=== PATIENT | female | born 1995 | race African-American/Black ===

== ENCOUNTER 2017-01-20 13:59 | Inpatient (IN) ==
--- NOTE | 2017-01-20 14:51 | Ultrasound Report ---
Exam: US OB biophysical profile Date: 01/20/2017 2:13 PM Comparison: None Indication: Hypertension Findings: Fetus in the vertex presentation with anterior placenta present. heart rate 141 bpm Amniotic fluid index 12.6 cm. Grade 3 placenta present. breathin movement:2 tone:2 Qualitative amniotic fluid volume:2 Impression: 1. Normal biophysical profile score 8 of 8. Ultrasound images were stored and captured PROCEDURE INTERPRETED AT [facility] DEPARTMENT OF RADIOLOGY Final Report Signed by: Dr. Juanito Nath
[2017-01-20] MEDS ORDERED: DINOPROSTONE VAG GEL 10 MG SYRINGE VAG ONE (16:08)
[2017-01-20] MEDS: LACTATED RINGERS 1,000 ML IV SCH ×2 (16:15→20:37)
[2017-01-20 16:39] LABS: Basophils % 0.1 % (0.0-0.8); Eosinophils # 0.1 10*3/uL (0.0-0.87); Eosinophils % 0.8 % (0.00-10.9); Hematocrit 36.8 VOL% (35.7-47.0); Hemoglobin 11.9 GM/DL (12.0-16.0); Immature Granulocytes % 0.8 %; Immature Granulocytes Absolute 0.07 #; Lymphocytes # 1.9 10*3/uL (1.4-4.0); Lymphocytes % 21.3 % (21.3-54.2); Mean Corpuscular HGB Conc 32.3 GM/DL (32-36); Mean Corpuscular Hemoglobin 30 PG (27-34); Mean Corpuscular Volume 93.6 FL (87-102); Mean Platelet Volume 12.3 FL (9.6-12.0); Monocytes # 0.7 10*3/uL (0.11-0.8); Monocytes % 7.6 % (1.7-12.7); Neutrophils # 6.3 10*3/uL (1.4-7.4); Neutrophils % 69.4 % (38.7-73.9); Platelet Count 167 T/CUMM (130-400); Red Blood Count 3.93 MC/CUMM (3.8-5.5); Red Cell Distribution Width 12.8 % (9.3-17.3); White Blood Count 9.1 T/CUMM (4-12)
[2017-01-20 16:45] LABS: INR 0.9; PT Patient Result 9.5 SECS; Partial Thromboplastin Time 24.7 SECS (0-40)
--- NOTE | 2017-01-20 17:42 | OB/GYN History & Physical ---
History of Present Illness Chief complaint: Induction due to PIH. History of present illness: Ms. Vivas is a 21 year old female who is a primigravida and grossly obese. Her HERNANDEZ is 01/29/2017 for an estimated gestational age of 38 weeks and 4 days. The patient presented to the labor department for evaluation of status due to hypertension and superimposed preeclampsia. In light of these findings the patient will be admitted for elective induction of labor due to the above. The risk and benefits have been thoroughly discussed with this patient and all parties are in agreement with plan of care. She received her care my office. And she received routine care. Her course was complicated by the fact that she had hypertension. She was treated with labetalol but could not tolerate it and was then started on Aldomet. 24-hour urine was also performed during this . labs: She is B+, her RPR was reactive at 1:8, hepatitis B negative, HIV negative, rubella immune, GBS culture positive. Home Medications Medication Instructions Recorded Confirmed Type Methyldopa 1 tablet PO BID 12/21/16 01/20/17 History No122/Iron/Folic Acid 1 tablet PO DAILY 12/21/16 01/20/17 History [ Multi Tablet] Allergies Allergy/AdvReac Type Severity Reaction Status Date / Time No Known Allergies Allergy Verified 01/14/17 08:38 12 point system: reviewed and no additional remarkable complaints except as stated Medical,Surgical,& Family Hx - Medical History Cardio: History of: Hypertension (gestational htn) Reproductive: History of: Sexually Transmitted Disorders (Chlamydia and syphilis in 2016) - Surgical History Cardiac Surgeries: Patient Denies: Cardiac Catheterization HEENT Surgeries: Surgical HX of: Tonsilectomy & Adenoidectomy Abdominal Surgeries: Patient denies: Abdominal Surgery Reproductive Surgeries: Patient denies;: Gynecologic Surgery - Family History Family History: Reports;: Family Hypertension (mom dad) Denies;: Family Anesthesia Reaction, Family Cancer, Family Diabetes, Family Heart Disease, Family Hematology, Family Psychiatric Problems, Family Stroke, Additional Family History - Social History Smoking Status: Never smoker Frequency of Alcohol Use: None Type of Drug Use: Marijuana Marital Status: Single Lives With:: Parent Functional 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 General appearance: no acute distress - Antepartum / Post Antepartum Exam Cervix - Dilatation: 1 cm Effacement: 50% Station: -2 Rupture: intact Presentation: vtx Heart Rate: 150s Breast: bilateral: normal Abdomen obstetrics: Present: bowel sounds normal Vagina: Present: normal moisture, discharge Uterus exam: Present: enlarged Anus/Rectum: Present: normal perianal skin - ENT ENT exam: Present: normal exam - Respiratory Respiratory exam: Present: clear to auscultation bilaterally - Cardiovascular Cardiovascular exam: Present: regular rate and rhythm - GI/Abdominal GI/Abdominal exam: Present: normal bowel sounds, soft - Extremities Exam Extremities exam: Present: normal inspection - Back Exam Back exam: Present: normal inspection - Neurological Exam Neurological exam: Present: alert, oriented X3 - Psychiatric Psychiatric exam: Present: normal affect, normal mood - Skin Skin exam: Present: normal color, warm Assessment and Plan (1) Hypertension affecting in third trimester Status: Acute Assessment and plan: Admit IV fluids Prostin per protocol IV Pitocin per protocol Artificial rupture membranes when appropriate Internal medicine is indicated Epidural anesthesia if desired IV antibiotics prophylactically for positive GBS culture Anticipate Current Visit: Yes Results - Labs CBC & BMP: 01/20/17 16:18
[2017-01-20] MEDS: METHYLDOPA 250 MG TABLET PO SCH (20:35)
[2017-01-20] MEDS: ONDANSETRON 4 MG/2 ML VIAL IV PRN (20:36)
[2017-01-20] MEDS: MEPERIDINE 50 MG/1 ML VIAL IV PRN (20:38)
[2017-01-21] MEDS ORDERED: AMPICILLIN INJ 2,000 MG in SODIUM CHLORIDE 0.9% 100 ML IV ONE (01:00)
[2017-01-21] MEDS: OXYTOCIN/LR 20 UNIT/1,000 ML BAG IV SCH ×2 (03:19→08:00)
[2017-01-21] MEDS: LACTATED RINGERS 1,000 ML IV SCH (03:21)
[2017-01-21 04:52] LABS: Rapid Plasma Reagin Confirm REACTIVE (Nonreactive)
[2017-01-21] MEDS: AMPICILLIN INJ 1,000 MG in SODIUM CHLORIDE 0.9% 100 ML IV SCH ×3 (08:00→15:50)
[2017-01-21] MEDS: METHYLDOPA 250 MG TABLET PO SCH (08:40)
[2017-01-21] MEDS: ONDANSETRON 4 MG/2 ML VIAL IV PRN (09:45)
[2017-01-21] MEDS: MEPERIDINE 50 MG/1 ML VIAL IV PRN (09:45)
[2017-01-21] MEDS ORDERED: BUTORPHANOL 2 MG/ML VIAL IV PRN (12:51)
[2017-01-21] MEDS ORDERED: LIDOCAINE 100 MG/5 ML SYRINGE ONE (15:19)
[2017-01-21] MEDS ORDERED: SUCCINYLCHOLINE 200 MG/10 ML VIAL ONE (15:19)
[2017-01-21] MEDS ORDERED: PROPOFOL 200 MG/20 ML VIAL IV ONE (15:19)
[2017-01-21] MEDS ORDERED: GLYCOPYRROLATE 0.4 MG/2 ML VIAL ONE (15:19)
[2017-01-21] MEDS ORDERED: ROCURONIUM 100 MG/10 ML VIAL IV ONE (15:19)
[2017-01-21] MEDS ORDERED: OXYTOCIN 10 UNIT/ML VIAL ONE (16:26)
[2017-01-21] MEDS ORDERED: CITRIC ACID/SODIUM CITRATE 30 ML UDCUP PO ONE (16:30)
[2017-01-21] MEDS ORDERED: FAMOTIDINE 20 MG/2 ML VIAL IV ONE (16:30)
[2017-01-21] MEDS ORDERED: OXYTOCIN 10 UNIT/ML VIAL IM ONE (16:30)
[2017-01-21] MEDS ORDERED: OXYTOCIN/LR 30 UNIT/1,000 ML BAG IV ONE (16:30)
[2017-01-21 18:03] LABS: Apearance,Urine CLEAR (Clear); Bacteria,Urine Occasional /HPF (Few); Bilirubin,Urine Negative (Negative); Blood, Urine Small mg/dL (Negative); Glucose,Urine (UA) Negative (Negative); Ketones,Urine 20 mg/dL (Negative); Mucus,Urine Occasional /LPF (Occasional); Nitrite,Urine Negative (Negative); Protein,Urine Negative; RBC,Urine 2 /HPF (0-4); Urine Color Yellow (Yellow); Urine Specific Gravity 1.006 (1.001-1.035); Urine Urobilinogen < 2.0 EU/DL (0.2-1.0); WBC,Urine 1 /HPF (0-6)
[2017-01-21] MEDS ORDERED: HYDROmorphone 2 MG/1 ML VIAL ONE (18:31)
--- NOTE | 2017-01-21 18:35 | Operative Note ---
Date of procedure: 01/21/17 Procedure: Preoperative diagnosis: Morbid obesity, grade 2 placenta, and gestational hypertension, poorly controlled gestational diabetes mellitus. Failure to progress Postoperative diagnosis: Same Anesthesia:[] General anesthesia, fails a spinal anesthetic Estimated blood loss: [] 400 cc Surgeon: Dr. Harding Findings: [] 7 lbs. 9 oz. infant, Apgars were 8 at 1 minute 9 at 5 minutes, male infant, cord blood and cord gas obtained,, delivery time was 1729 Complications: None Procedure: Low transverse section The patient was taken to the operating suite heart tones were obtained prior to and after regional anesthesia was obtained. She was placed in supine position her abdomen was prepped and draped in usual manner for major abdominal surgery. Through an abdominal incision the skin, subcutaneous, fascial layer and peritoneal the abdomen was entered. The bladder flap was created and a low transverse incision was made.. Fluid was clear and normal amount X, Apgars, the placenta was delivered and sent to lab for further evaluation, placenta approximately 70% calcified.. Injected with intrauterine Pitocin. The first layer of the uterus was closed with #1 Vicryl in a continuous locking manner. Close to imbricate the first layer with #1 Vicryl. The peritoneum was approximated with #2-0 Vicryl.[] All the last sponges and instruments were accounted for -2.) #2-0 Vicryl. Fascia was approximated with #0-0 Maxon.. The skin was approximated with reed. She tolerated procedure well and was taken to recovery room in stable condition. Surgeon / Physician: Cherie Harding Results - Labs CBC & BMP: 01/20/17 16:18 Discharge Plan - Discharge Medications No Action Methyldopa 1 tablet PO BID No122/Iron/Folic Acid [ Multi Tablet] 1 tablet PO DAILY - Follow Up or Referral - Forms/Instructions
[2017-01-21] MEDS ORDERED: ACETAMINOPHEN 325 MG TABLET PO PRN (18:36)
[2017-01-21] MEDS ORDERED: RHO(D) IMMUNE GLOBULIN 300 MCG SYRINGE IM ONE (18:36)
[2017-01-21] MEDS ORDERED: OXYTOCIN/LR 20 UNIT/1,000 ML BAG IV ONE ×2 (18:36→19:36)
[2017-01-21] MEDS ORDERED: ONDANSETRON 4 MG/2 ML VIAL IV PRN (18:36)
[2017-01-21] MEDS ORDERED: MAGNESIUM HYDROXIDE SUSP 30 ML UDCUP PO PRN (18:36)
[2017-01-21] MEDS ORDERED: LACTATED RINGERS 1,000 ML IV SCH (19:00)
[2017-01-21] MEDS ORDERED: fentaNYL 100 MCG/2 ML VIAL ONE (19:02)
[2017-01-21] MEDS ORDERED: MIDAZOLAM 2 MG/2 ML VIAL ONE (19:02)
[2017-01-21] MEDS ORDERED: MORPHINE 10 MG/10 ML VIAL ONE (19:03)
--- NOTE | 2017-01-21 19:15 | Anesthesia Post-Op ---
Anesthesia Post OP - Post Ansesthetic Evaluation Patient seen in post op: Yes Resp: within normal limits (pt on 100% FM, nurse remains in room at pt beside) CV: within normal limits Mental: within normal limits (pt sedate, resp even , nurse present in room) Temp: within normal limits [id number]: within normal limits Nausea and Vomiting: within normal limits Pain: within normal limits
[2017-01-21] MEDS ORDERED: CARBOPROST TROMETHAMINE 250 MCG/ML AMP IM ONE (19:16)
[2017-01-21] MEDS ORDERED: NALOXONE 0.4 MG/ML VIAL IV PRN (19:36)
[2017-01-21] MEDS ORDERED: HYDROmorphone PCA 30 MG/30 ML SYRINGE IV ONE (19:41)
[2017-01-21] MEDS ORDERED: HYDROmorphone PCA 30 MG/30 ML SYRINGE IV SCH (20:00)
[2017-01-21 21:25] LABS: Basophils % 0.1 % (0.0-0.8); Eosinophils % 0.1 % (0.00-10.9); Hematocrit 28.9 VOL% (35.7-47.0); Hemoglobin 9.7 GM/DL (12.0-16.0); Immature Granulocytes % 0.7 %; Immature Granulocytes Absolute 0.09 #; Lymphocytes # 1.1 10*3/uL (1.4-4.0); Lymphocytes % 9.2 % (21.3-54.2); Mean Corpuscular HGB Conc 33.6 GM/DL (32-36); Mean Corpuscular Hemoglobin 31 PG (27-34); Mean Platelet Volume 11.9 FL (9.6-12.0); Monocytes # 0.5 10*3/uL (0.11-0.8); Monocytes % 4.2 % (1.7-12.7); Neutrophils # 10.4 10*3/uL (1.4-7.4); Neutrophils % 85.7 % (38.7-73.9); Platelet Count 146 T/CUMM (130-400); Red Blood Count 3.14 MC/CUMM (3.8-5.5); White Blood Count 12.2 T/CUMM (4-12)
[2017-01-21] MEDS: DOCUSATE SODIUM 100 MG CAPSULE PO SCH (22:26)
[2017-01-21] MEDS ORDERED: SODIUM CHLORIDE 0.9% 250 ML IV PRN (23:28)
[2017-01-22 06:26] LABS: Basophils % 0.1 % (0.0-0.8); Eosinophils # 0.1 10*3/uL (0.0-0.87); Eosinophils % 0.6 % (0.00-10.9); Hematocrit 27.2 VOL% (35.7-47.0); Hemoglobin 8.9 GM/DL (12.0-16.0); Immature Granulocytes % 0.8 %; Immature Granulocytes Absolute 0.08 #; Lymphocytes # 1.5 10*3/uL (1.4-4.0); Lymphocytes % 15.8 % (21.3-54.2); Mean Corpuscular HGB Conc 32.7 GM/DL (32-36); Mean Corpuscular Hemoglobin 31 PG (27-34); Mean Corpuscular Volume 93.2 FL (87-102); Mean Platelet Volume 11.7 FL (9.6-12.0); Monocytes # 0.5 10*3/uL (0.11-0.8); Monocytes % 5.4 % (1.7-12.7); Neutrophils # 7.3 10*3/uL (1.4-7.4); Neutrophils % 77.3 % (38.7-73.9); Platelet Count 121 T/CUMM (130-400); Red Blood Count 2.92 MC/CUMM (3.8-5.5); Red Cell Distribution Width 12.8 % (9.3-17.3); White Blood Count 9.4 T/CUMM (4-12)
[2017-01-22] MEDS: MULTIVITAMIN (PRENATAL) TABLET PO SCH (08:25)
[2017-01-22] MEDS: FERROUS SULFATE 325 MG TABLET PO SCH ×3 (08:25→20:05)
[2017-01-22] MEDS: DOCUSATE SODIUM 100 MG CAPSULE PO SCH ×2 (08:26→20:05)
[2017-01-22] MEDS: IBUPROFEN 800 MG TABLET PO PRN ×2 (08:26→18:51)
[2017-01-22] MEDS: ENOXAPARIN 40 MG/0.4 ML SYRINGE SUBCUT SCH (10:35)
--- NOTE | 2017-01-22 11:54 | Progress Note ---
Assessment and Plan (1) Hypertension affecting in third trimester Status: Acute Assessment and plan: Admit IV fluids Prostin per protocol IV Pitocin per protocol Artificial rupture membranes when appropriate Internal medicine is indicated Epidural anesthesia if desired IV antibiotics prophylactically for positive GBS culture Anticipate Current Visit: Yes Family Medicine PN Sub Interval history: day #1 Status post section for failure to progress, and also morbid obesity. Incision sites intact Abdomen soft appropriately tender Extremities well with no limits and neurologically grossly intact assessment and plan We will continue present therapy advance diet as tolerated increase ambulation will discontinue to blood thinners once patient is extremely ambulating Exam (Progress Note) - Constitutional Vitals: Period Temp Pulse Resp BP Sys/Wright Pulse Ox Last 24 Hr 97.0 F-97.5 F 76-103 16-20 115-173/55-80 98-99 Results - Labs CBC & BMP: 01/22/17 06:13 Quality Measures - VTE Contraindication to Pharmacological VTE Prophylaxis: Clinical assessment deems Pt at low risk, no prophalaxis needed
--- NOTE | 2017-01-22 15:37 | OB/GYN History & Physical ---
History of Present Illness History of present illness: Ms. Vivas is a 21 year old female Home Medications Medication Instructions Recorded Confirmed Type Methyldopa 1 tablet PO BID 12/21/16 01/20/17 History No122/Iron/Folic Acid 1 tablet PO DAILY 12/21/16 01/20/17 History [ Multi Tablet] Allergies Allergy/AdvReac Type Severity Reaction Status Date / Time No Known Allergies Allergy Verified 01/14/17 08:38 Medical,Surgical,& Family Hx - Medical History Cardio: History of: Hypertension (gestational htn) Reproductive: History of: Sexually Transmitted Disorders (Chlamydia and syphilis in 2016) - Surgical History Cardiac Surgeries: Patient Denies: Cardiac Catheterization HEENT Surgeries: Surgical HX of: Tonsilectomy & Adenoidectomy Abdominal Surgeries: Patient denies: Abdominal Surgery Reproductive Surgeries: Patient denies;: Gynecologic Surgery - Family History Family History: Reports;: Family Hypertension (mom dad) Denies;: Family Anesthesia Reaction, Family Cancer, Family Diabetes, Family Heart Disease, Family Hematology, Family Psychiatric Problems, Family Stroke, Additional Family History - Social History Smoking Status: Never smoker Frequency of Alcohol Use: None 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 - Constitutional Vitals: Vital Signs Temp Pulse Pulse Resp BP BP Pulse Ox 01/22/17 06:49 18 01/22/17 03:00 18 01/22/17 01:05 88 20 122/72 01/22/17 00:05 97.1 F L 76 20 129/65 01/21/17 23:05 97.2 F L 85 20 132/68 01/21/17 22:35 85 20 132/62 01/21/17 22:05 97.1 F L 78 20 120/57 01/21/17 20:10 90 18 125/65 98 01/21/17 19:21 100 H 19 115/55 01/21/17 19:06 100 H 18 173/77 01/21/17 18:51 85 20 172/76 01/21/17 18:36 97.5 F L 103 H 16 171/80 01/21/17 16:00 97.0 F L 77 17 129/63 Pulse Ox 01/22/17 06:49 01/22/17 03:00 01/22/17 01:05 98 01/22/17 00:05 99 01/21/17 23:05 99 01/21/17 22:35 99 01/21/17 22:05 99 01/21/17 20:10 01/21/17 19:21 01/21/17 19:06 01/21/17 18:51 01/21/17 18:36 01/21/17 16:00 Assessment and Plan (1) Hypertension affecting in third trimester Status: Acute Assessment and plan: Admit IV fluids Prostin per protocol IV Pitocin per protocol Artificial rupture membranes when appropriate Internal medicine is indicated Epidural anesthesia if desired IV antibiotics prophylactically for positive GBS culture Anticipate Current Visit: Yes Results - Labs CBC & BMP: 01/22/17 06:13 Quality Measures - VTE Contraindication to Pharmacological VTE Prophylaxis: Clinical assessment deems Pt at low risk, no prophalaxis needed
[2017-01-22] MEDS ORDERED: oxyCODONE/ACETAMINOPHEN 5-325 MG TABLET PO PRN (19:59)
[2017-01-22] MEDS: oxyCODONE/ACETAMINOPHEN 5-325 MG TABLET PO PRN (20:05)
[2017-01-22] MEDS: SIMETHICONE CHEW 80 MG TABLET PO PRN (20:05)
[2017-01-22] MEDS ORDERED: BISACODYL 10 MG SUPP RECTAL PRN (23:04)
[2017-01-23] MEDS: oxyCODONE/ACETAMINOPHEN 5-325 MG TABLET PO PRN ×4 (05:12→19:31)
[2017-01-23] MEDS: MULTIVITAMIN (PRENATAL) TABLET PO SCH (08:51)
[2017-01-23] MEDS: FERROUS SULFATE 325 MG TABLET PO SCH ×3 (08:51→20:34)
[2017-01-23] MEDS: ENOXAPARIN 40 MG/0.4 ML SYRINGE SUBCUT SCH (08:51)
[2017-01-23] MEDS: DOCUSATE SODIUM 100 MG CAPSULE PO SCH ×2 (08:51→20:33)
[2017-01-23] MEDS: SIMETHICONE CHEW 80 MG TABLET PO PRN (10:24)
--- NOTE | 2017-01-23 11:07 | OB/GYN Progress Note ---
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 - PN: Subj Interval history: Feels ok, sore Exam COORDINATOR OF EVALUATION - Constitutional Vitals: Vital Signs Temp Pulse Resp BP Pulse Ox 01/23/17 04:00 98.1 F 91 H 20 117/64 95 01/23/17 03:00 20 01/23/17 02:00 20 01/23/17 01:00 20 01/22/17 23:57 98.2 F 75 18 102/50 95 01/22/17 23:00 20 01/22/17 22:15 20 01/22/17 21:05 20 01/22/17 20:05 98.3 F 96 H 20 128/60 96 General appearance: no acute distress, morbidly obese - Head Head exam: Present: normal inspection - Eye Eye exam: Present: EOMI Pupils: Present: OMAIRA - GI/Abdominal GI/Abdominal exam: Present: other (incision intact) Results - Labs CBC & BMP: 01/22/17 06:13
[2017-01-23] MEDS: MAGNESIUM HYDROXIDE SUSP 30 ML UDCUP PO SCH ×2 (13:15→20:34)
[2017-01-23] MEDS: IBUPROFEN 800 MG TABLET PO PRN ×2 (13:20→23:32)
--- NOTE | 2017-01-24 08:02 | Discharge Summary ---
Hospital Course - Hospital Course Hospital Course: Routine postop course without complication. Pt feels well, ready to go home Diagnosis - Discharge Diagnosis (1) Status post primary low transverse section Status: Acute (2) Hypertension affecting in third trimester Status: Acute Discharge Plan - Discharge Data Disposition: Disch To Home/Self Care Condition at Discharge: Stable Discharge Diet: heart healthy, low fat, low cholesterol Activity: other (routine postop) Hygiene: may shower Weight Bearing at Discharge: full weight bearing Driving: not for (2 weeks) - Discharge Medications New Docusate Sodium Cap [Colace Cap] 100 mg PO BID #30 capsule Ibuprofen Tab [Motrin Tab] 800 mg PO Q8H PRN #30 tablet PRN Reason: Pain Severe (8-10) HYDROcodone/ACETAMIN 5-325 [Steinauer 5-325] 2 tablet PO Q6H PRN #20 tablet PRN Reason: Pain Severe (8-10) No Action Methyldopa 1 tablet PO BID No122/Iron/Folic Acid [ Multi Tablet] 1 tablet PO DAILY - Follow Up or Referral - Forms/Instructions Exam - Constitutional Vitals: Period Temp Pulse Resp BP Sys/Wright Pulse Ox Last 24 Hr 97.3 F-98.6 F 82-100 17-20 110-146/49-69 95-100 General appearance: no acute distress, morbidly obese - Head Head exam: Present: normal inspection, normocephalic - Eye Eye exam: Present: EOMI Pupils: Present: OMAIRA - GI/Abdominal GI/Abdominal exam: Present: other (Incision intact) Discharge Results Procedures and tests throughout hospitalization: Pending Orders 01/21/17 16:18 Red Blood Cells Leuko Red Stat Labs on day of discharge: Labs from last 24 hours 01/21/17 16:18 Crossmatch See Detail DS: Provider Date of admission: 01/20/17 16:07 Primary care physician: . No PCP Attending physician on admission: Cherie Harding MD Consults: 01/20/17 16:07 Consult to Anesthesiology [CONS] Routine Consulting Provider: Reason for Anesthesiology: Epidural Consult Comment: Epidural for pain managment 01/21/17 16:43 Consult to Anesthesiology [CONS] Routine Consulting Provider: Reason for Anesthesiology: Pre-op Clearance 01/21/17 18:36 Consult to Plaster Model And Mold Maker [CONS] Routine Consult Plaster Model And Mold Maker: Breast Feeding 01/22/17 09:00 Consult to Dietitian [CONS] Routine Reason for Dietitian: Dietary Consult Discharging clinician: Nita Grimes MD
[2017-01-24 09:55] VITALS: BP 138/62
[2017-01-24] MEDS: DOCUSATE SODIUM 100 MG CAPSULE PO SCH (10:03)
[2017-01-24] MEDS: MAGNESIUM HYDROXIDE SUSP 30 ML UDCUP PO SCH (10:04)
[2017-01-24] MEDS: ENOXAPARIN 40 MG/0.4 ML SYRINGE SUBCUT SCH (10:04)
[2017-01-24] MEDS: FERROUS SULFATE 325 MG TABLET PO SCH (10:04)
[2017-01-24] MEDS: MULTIVITAMIN (PRENATAL) TABLET PO SCH (10:05)
[2017-01-24] MEDS: IBUPROFEN 800 MG TABLET PO PRN (11:06)
[2017-01-24] MEDS: oxyCODONE/ACETAMINOPHEN 5-325 MG TABLET PO PRN (11:08)
[2017-01-24] MEDS ORDERED: INFLUENZA VIRUS VACCINE 0.5 ML SYRINGE IM ONE (11:32)
--- NOTE | 2017-01-26 09:19 | Pathology Report from [facility] ---
[facility] ACCESSION # : [id number] PATIENT NAME : Alana Vivas ORDERING DR : FOX OLSON MD CLINICAL HX: IUP @ 38.6 wks, failure to progress, HTN, calcifications POST-OP DX: Same SPECIMEN INFO: Placenta GROSS DESCRIPTION: Received fresh labeled with the patients name and consists of a 485 gram placenta measuring 19.1 x 14.5 cm x up to 2.8 cm. membranes are cabral, opaque and slightly thickened. The umbilical cord is pericentrally inserted, contains three vessels and measures 14.2 cm. The surface is [id number] with large areas of firm creamy white areas present. There is a 4.0 x 2.0 cm cyst present. There is a 5.0 cm through and through area of white discoloration noted at the periphery. The maternal surface is hemorrhagic with adherent clotted blood and moderately disrupted cotyledons. There are numerous calcifications present. No additional pathology on sectioning. Sections submitted: A membranes and cord, B and maternal surfaces. DIAGNOSIS FOR ALANA VIVAS: PLACENTA, 38.5 WEEKS GESTATIONAL AGE, SECTION: Mature placenta, 485 gms trimmed weight. Peripheral, subchorionic infarct, 5.0 cm. Trivascular umbilical cord, 14.2 cm in length. COLLECTED DATE: 01/22/2017 [employer] REPORT DATE: 01/25/2017 ELECTRONICALLY SIGNED BY: Mely Norwood M.D. 01/25/2017 - 9:15:59 [email or web address]
== END 2017-01-24 14:15 | disposition home or self-care (01) | DRG 540 ==
LOC: N.LDOUT 13:59 → N.LD 14:00 → N.OB 01-21 22:05
PROVIDERS: ADMIT Obstetrics & Gynecology; ATTEND Obstetrics & Gynecology
PROC: LDCSECT (ICD-10-PCS; 2017-01-21 17:00)

== ENCOUNTER 2019-05-01 18:02 | Inpatient (IN) ==
[2019-05-01] MEDS ORDERED: HYDROmorphone 2 MG/1 ML VIAL IV STA (18:27)
[2019-05-01] MEDS ORDERED: SODIUM CHLORIDE 0.9% 500 ML IV STA (18:27)
[2019-05-01] MEDS ORDERED: ONDANSETRON 4 MG/2 ML VIAL IV STA (18:27)
[2019-05-01 18:44] LABS: Hematocrit 42.6 VOL% (35.7-47.0); Hemoglobin 13.4 GM/DL (12.0-16.0); Mean Corpuscular Volume 92.8 FL (87-102); Red Blood Count 4.59 MC/CUMM (3.8-5.5); White Blood Count 9.7 T/CUMM (4-12)
[2019-05-01 18:45] LABS: Basophils % 0.2 % (0.0-0.8); Immature Granulocytes % 0.4 %; Immature Granulocytes Absolute 0.04 #; Lymphocytes # 1.4 10*3/uL (1.4-4.0); Lymphocytes % 14.1 % (21.3-54.2); Mean Corpuscular HGB Conc 31.5 GM/DL (32-36); Mean Platelet Volume 12.2 FL (9.6-12.0); Monocytes % 3.9 % (1.7-12.7); Neutrophils % 81.4 % (38.7-73.9); Platelet Count 211 T/CUMM (130-400); Red Cell Distribution Width 13.5 % (9.3-17.3)
[2019-05-01 19:05] LABS: Alanine Aminotransferase 28 U/L (13-56); Albumin 3.7 G/DL (3.4-5.0); Alkaline Phosphatase 72 U/L (45-117); Amylase 41 U/L (25-115); Aspartate Amino Transferase 18 U/L (0-37); Beta HCG Titer < 1.00 mIU/ml (1-3); Blood Urea Nitrogen 9 MG/DL (7-18); Calcium 8.9 MG/DL (8.5-10.1); Estimated Glom Filtration Rate 169 ML/MIN; Glucose 121 MG/DL (74-106); Osmolality,Calculated 280.3 MOS/KG (273-304); Total Protein 7.4 G/DL (6.4-8.3)
[2019-05-01 20:04] LABS: Apearance,Urine CLEAR (Clear); Bacteria,Urine Occasional /HPF (Few); Bilirubin,Urine Negative (Negative); Blood, Urine Large mg/dL (Negative); Glucose,Urine (UA) Negative (Negative); Ketones,Urine 5 mg/dL (Negative); Mucus,Urine Occasional /LPF (Occasional); Nitrite,Urine Negative (Negative); Protein,Urine Negative; RBC,Urine 37 /HPF (0-4); Squamous Epithelial Cell,Urine Few /HPF (0-10); Urine Color Yellow (Yellow); Urine Specific Gravity > 1.060 (1.001-1.035); Urine Urobilinogen < 2.0 EU/DL (0.2-1.0); WBC,Urine 10 /HPF (0-6)
[2019-05-01] MEDS ORDERED: ACETAMINOPHEN 325 MG TABLET PO PRN (22:36)
[2019-05-01] MEDS ORDERED: ONDANSETRON 4 MG/2 ML VIAL IV PRN (22:36)
[2019-05-01] MEDS: HYDROmorphone 2 MG/1 ML VIAL IV PRN (23:16)
[2019-05-01] MEDS: SODIUM CHLORIDE 0.9% 1,000 ML IV SCH (23:17)
[2019-05-01] MEDS: PIPERACILLIN/TAZOBACTAM 3,375 MG in SODIUM CHLORIDE 0.9% 100 ML IV SCH (23:17)
[2019-05-02 05:22] LABS: Basophils % 0.1 % (0.0-0.8); Eosinophils % 0.2 % (0.00-10.9); Hematocrit 40.4 VOL% (35.7-47.0); Hemoglobin 12.9 GM/DL (12.0-16.0); Immature Granulocytes % 0.5 %; Immature Granulocytes Absolute 0.06 #; Lymphocytes # 1.8 10*3/uL (1.4-4.0); Lymphocytes % 15.7 % (21.3-54.2); Mean Corpuscular HGB Conc 31.9 GM/DL (32-36); Mean Corpuscular Volume 92.2 FL (87-102); Mean Platelet Volume 12.1 FL (9.6-12.0); Neutrophils % 75.5 % (38.7-73.9); Platelet Count 210 T/CUMM (130-400); Red Blood Count 4.38 MC/CUMM (3.8-5.5); Red Cell Distribution Width 13.5 % (9.3-17.3); White Blood Count 11.4 T/CUMM (4-12)
[2019-05-02] MEDS: HYDROmorphone 2 MG/1 ML VIAL IV PRN ×2 (05:41→20:41)
[2019-05-02 05:50] LABS: Albumin 3.2 G/DL (3.4-5.0); Bilirubin,Total 0.8 MG/DL (0.2-1.0); Calcium 8.7 MG/DL (8.5-10.1); Osmolality,Calculated 270.8 MOS/KG (273-304)
[2019-05-02] MEDS ORDERED: INDOCYANINE GREEN 25 MG VIAL IV ONE ×2 (06:17→08:00)
[2019-05-02] MEDS ORDERED: cefOXitin 2,000 MG in SYRINGE 1 EACH IV ONE (06:17)
[2019-05-02] MEDS: PIPERACILLIN/TAZOBACTAM 3,375 MG in SODIUM CHLORIDE 0.9% 100 ML IV SCH ×2 (07:12→17:11)
[2019-05-02] MEDS: SODIUM CHLORIDE 0.9% 1,000 ML IV SCH ×3 (07:30→22:38)
[2019-05-02] MEDS: PANTOPRAZOLE 40 MG VIAL IV SCH (08:30)
[2019-05-02] MEDS ORDERED: MEPERIDINE 25 MG/1 ML VIAL IV PRN ×2 (09:25→15:16)
[2019-05-02] MEDS: ENOXAPARIN 40 MG/0.4 ML SYRINGE SUBCUT SCH (09:44)
[2019-05-02] MEDS: PROMETHAZINE 25 MG/1 ML VIAL IM PRN (10:38)
[2019-05-02] MEDS ORDERED: BUPIVACAINE 0.25% /EPI 10 ML VIAL ONE (13:55)
[2019-05-02] MEDS ORDERED: TISSUE ADHESIVE 1 EACH APPLICATOR TOP ONE ×2 (13:56→14:02)
[2019-05-02] MEDS ORDERED: LIDOCAINE 1%/EPI INJ 20 ML VIAL ONE ×2 (13:56→14:02)
[2019-05-02] MEDS ORDERED: BUPIVACAINE MPF 0.25% 30 ML VIAL ONE (14:02)
[2019-05-02] MEDS ORDERED: PROMETHAZINE INJ 25 MG in SODIUM CHLORIDE 0.9% 50 ML IV PRN (15:16)
[2019-05-02] MEDS ORDERED: diphenhydrAMINE 50 MG/1 ML VIAL IV PRN (15:16)
[2019-05-02] MEDS ORDERED: ONDANSETRON 4 MG/2 ML VIAL IV PRN (15:16)
[2019-05-02] MEDS ORDERED: SUGAMMADEX 200 MG/2 ML VIAL IV ONE (15:31)
[2019-05-02] MEDS ORDERED: ONDANSETRON 4 MG/2 ML VIAL ONE ×2 (15:57→15:59)
[2019-05-02] MEDS ORDERED: LIDOCAINE 2% 5 ML VIAL ONE (15:57)
[2019-05-02] MEDS ORDERED: propofoL 200 MG/20 ML VIAL IV ONE (15:57)
[2019-05-02] MEDS ORDERED: DESFLURANE 1 UNIT/15 MINUTE INH ONE (15:57)
[2019-05-02] MEDS ORDERED: SUCCINYLCHOLINE 200 MG/10 ML VIAL ONE (15:57)
[2019-05-02] MEDS ORDERED: MIDAZOLAM 2 MG/2 ML VIAL ONE (15:57)
[2019-05-02] MEDS ORDERED: DEXAMETHASONE 4 MG/1 ML VIAL ONE (15:57)
[2019-05-02] MEDS ORDERED: ROCURONIUM 100 MG/10 ML VIAL IV ONE (15:58)
[2019-05-02] MEDS ORDERED: MEPERIDINE 25 MG/1 ML VIAL ONE (15:59)
[2019-05-02] MEDS ORDERED: fentaNYL 100 MCG/2 ML VIAL ONE (16:02)
[2019-05-03 05:56] LABS: Free T4 (Free Thyroxine) 0.9 NG/DL (0.76-1.46); Thyroid Stimulating Hormone 0.171 uIU/ml (0.358-3.74)
[2019-05-03] MEDS: PROMETHAZINE 25 MG/1 ML VIAL IM PRN (07:33)
[2019-05-03] MEDS: SODIUM CHLORIDE 0.9% 1,000 ML IV SCH (08:07)
[2019-05-03] MEDS: ENOXAPARIN 40 MG/0.4 ML SYRINGE SUBCUT SCH (08:32)
[2019-05-03] MEDS: PANTOPRAZOLE 40 MG VIAL IV SCH (08:33)
[2019-05-03] MEDS ORDERED: hydroCHLOROthiazide 25 MG TABLET PO SCH (09:30)
[2019-05-03 11:44] VITALS: BP 139/72
== END 2019-05-03 14:34 | disposition home or self-care (01) | DRG 418 ==
LOC: N.ED 18:02 → N.EDINP 21:49 → N.3E 22:25
PROVIDERS: ADMIT Surgery; ATTEND Surgery